=== PATIENT | male | born 1980 | race African-American/Black ===

== ENCOUNTER 2016-06-24 11:06 | Emergency (ER) | payer SELFPAY ==
[~2016-06-24] VITALS: Ht 193 cm; Wt 93.3 kg
[~2016-06-24 11:06] MED LIST: NO MEDS; PERCOCET 5/31 TABLET PO
[2016-06-24 13:25] LABS: EOSINOPHIL (%) 0.5 % (0-5); HEMATOCRIT 50.6 % (38.0-50.0); IMMATURE GRANULOCYTE (%) 0.4 % (0.0-0.7); INSTRUMENT ABS NEUTROPHIL CT 4.6 K/uL; LYMPHOCYTE COUNT 2.7 K/uL (1.0-2.8); MCH 31.5 PG (29.0-34.0); MCHC 33.8 G/DL (30.0-36.0); MCV 93.2 FL (86-99); MEAN PLAT.VOLUME 8.6 uM^3 (9.0-12.4); MONOCYTE (%) 5.9 % (3-12); MONOCYTE COUNT 0.5 K/uL (0-0.8); NEUTROPHIL (%) 57.8 % (45-76); NEUTROPHIL COUNT 4.6 K/uL (1.8-6.4); PLATELET COUNT 285 K/uL (156-360); RBC DIS.WIDTH-CV 13.2 % (11.8-14.6); RED BLOOD COUNT 5.43 M/uL (4.00-5.50); WHITE BLOOD COUNT 7.9 K/uL (4.1-10.2)
[2016-06-24 13:34] LABS: CHLORIDE 104 mEq/L (99-109); POTASSIUM 4.5 mEq/L (3.7-5.4); SODIUM 138 mEq/L (136-147)
[2016-06-24 13:36] LABS: GLUCOSE 88 mg/dL (70-99)
[2016-06-24 13:37] LABS: ANION GAP 7 MEQ/L (2-14)
[2016-06-24 13:39] LABS: GFR ESTIMATE (CALCULATED) > 59 mL/min/
[2016-06-24 13:40] LABS: UREA NITROGEN (BUN) 13 mg/dL (9-23)
[2016-06-24 13:42] LABS: URIC ACID 7.4 mg/dL (3.1-9.2)
[2016-06-24] MEDS ORDERED: INDOCIN50 MG PO (14:20)
[2016-06-24] MEDS ORDERED: NORCO 7.5/321 TABLET PO (14:47)
[2016-06-24 15:12] VITALS: BP 142/91
== END 2016-06-24 15:12 | disposition home or self-care (01) ==
LOC: EME 11:06
PROVIDERS: Physician Assistant
DX: M10.072 Idiopathic gout, left ankle and foot (principal); F17.200 Nicotine dependence, unspecified, uncomplicated
CPT/HCPCS: 80048; 84550; 85025; 99281; 99283